=== PATIENT | male | born 1965 ===

== ENCOUNTER 2016-11-10 07:52 | Day surgery (SDC) | payer MEDICAID ==
[2016-11-07 11:56] VITALS: BMI 28.4
[2016-11-10] MEDS ORDERED: Propofol 10 mg/ml Inj (20 ML) ONE (08:50)
[2016-11-10] MEDS ORDERED: Methylene Blue 10 mg/mL(10ml) IV ONE (08:51)
[2016-11-10] MEDS ORDERED: Sodium Chloride 0.9% 1,000 ML IV SCH (09:45)
[2016-11-10 10:58] VITALS: BP 131/84; PULSE 88; RESP 16; TEMP 98.4; O2SAT 97
== END 2016-11-10 11:23 | disposition home or self-care (01) ==
LOC: ENDO 07:52
PROVIDERS: ATTEND Internal Medicine Gastroenterology
DX: K51.90 Ulcerative colitis, unspecified, without complications (principal); K64.1 Second degree hemorrhoids; I10 Essential (primary) hypertension; E11.9 Type 2 diabetes mellitus without complications; Z79.4 Long term (current) use of insulin
CPT/HCPCS: 45380; 82948; 88305; J2704; J7040 ×2

== ENCOUNTER 2018-03-15 07:45 | Day surgery (SDC) | payer MEDICAID ==
[2017-04-12 09:24] VITALS: BMI 27.3
[2018-03-15] MEDS ORDERED: Midazolam 2 MG/2 ML VIAL ONE (09:02)
[2018-03-15] MEDS ORDERED: Propofol 10 mg/ml Inj (20 ML) ONE (09:02)
[2018-03-15] MEDS ORDERED: Sodium Chloride 0.9% 1,000 ML IV SCH (09:30)
[2018-03-15 10:44] VITALS: BP 95/70; PULSE 87; RESP 19; TEMP 97.5
[2018-03-15 11:18] VITALS: O2SAT 96
== END 2018-03-15 11:10 | disposition home or self-care (01) ==
LOC: ENDO 07:45
PROVIDERS: ATTEND Internal Medicine Gastroenterology
DX: K21.0 Gastro-esophageal reflux disease with esophagitis (principal); K29.70 Gastritis, unspecified, without bleeding
CPT/HCPCS: 43239; 82948; 88305; 88312; 88342; J2001; J2250; J2704; J7030; J7040

== ENCOUNTER 2018-07-12 09:28 | Outpatient (CLI) | payer MEDICAID | END 2018-07-12 09:29 | disposition home or self-care (01) | LOC: ONC 09:28 ==